=== PATIENT | female | born 1995 | race Caucasian/White ===

== ENCOUNTER 2023-04-29 22:20 | Emergency (ER) | payer OTHER ==
[~2023-04-29] VITALS: Ht 160 cm; Wt 66.0 kg
[2023-04-29 22:28] VITALS: BP 112/74; PULSE 83; RESP 16; TEMP 98.2; O2SAT 98
[2023-04-30 00:35] LABS: BASOPHILS % 0.2 % (0.0-2.0); EOSINOPHILS % 1.5 % (0.0-5.0); HEMATOCRIT. 35.2 % (36.0-48.0); HEMOGLOBIN. 12.1 g/dL (12.0-16.0); LYMPHOCYTES % 29.3 % (20.0-50.0); MEAN CORPUSCULAR HEMOGLOBIN 28.4 pg (28.0-32.0); MEAN CORPUSCULAR VOLUME 82.9 fL (81.0-99.0); MEAN PLATELET VOLUME 8.1 fl (7.4-10.4); MONOCYTES % 7.7 % (2.0-8.0); NEUTROPHILS % 61.3 % (40.0-76.0); PLATELET 251 x1000/uL (130-400); RED BLOOD CELL COUNT 4.25 mill/uL (4.2-5.4)
[2023-04-30 00:51] LABS: CHLORIDE 108 mEq/L (98-107)
[2023-04-30] MEDS ORDERED: METH-653 MT (02:57)
[2023-04-30] MEDS ORDERED: IBUP-2029 MT (02:57)
== END 2023-04-30 03:53 | disposition home or self-care (01) ==
LOC: ER 22:20
DX: R07.89 Other chest pain (principal)
CPT/HCPCS: 36415; 71045; 80053; 84484; 85025; 85379; 99284